=== PATIENT | female | born 1970 | race Caucasian/White ===

== ENCOUNTER 2019-10-08 17:21 | Emergency (ER) | payer OTHER, SELFPAY ==
--- NOTE | 2019-10-08 17:47 | PC.NURSE ---
Left without being seen or triaged
== END 2019-10-08 17:40 | disposition left against medical advice (07) ==
PROVIDERS: Emergency Provider Nurse Practitioner Family
DX: Z53.21 Procedure and treatment not carried out due to patient leaving prior to being seen by health care provider (principal)
CPT/HCPCS: 99199

== ENCOUNTER 2022-02-03 14:11 | Emergency (ER) | payer OTHER, SELFPAY ==
[2022-02-03 14:18] VITALS: BP 112/80; PULSE 91; RESP 16; TEMP 37.3; O2SAT 97
--- NOTE | 2022-02-03 14:45 | ED.EYEPROB ---
HPI - Eye Problem General Chief complaint: Eye Problems Stated complaint: right eye redness Time Seen by Provider: 02/03/22 14:45 Source: patient Mode of arrival: ambulatory Limitations: no limitations History of Present Illness HPI Narrative: 51-year-old female presents with complaint of redness, drainage, itching, irritation to right eye for several days. Reports symptoms started to left eye last week and redness resolved to left eye. Reports it feels like she has a clear film over both eyes. No pain or vision change. Does not have an electronic specialist. All systems reviewed and negative except as noted above. Related Data Allergies Allergy/AdvReac Type Severity Reaction Status Date / Time aspirin Allergy Mild THINS MY Verified 02/03/22 14:54 BLOOD AND MAKES MY NOSE BLEED codeine Allergy Unknown N/V Verified 02/03/22 14:54 Review of Systems Review of Systems: CONSTITUTIONAL: Denies fever, chills, or sweats. EYES: Denies visual changes. Reports right eye redness, itching, irritation and discharge. ENT: Denies rhinorrhea, congestion, sore throat, or otalgia. CARDIOVASCULAR: Denies chest pain, palpitations, or edema. RESPIRATORY: Denies cough or dyspnea. GASTROINTESTINAL: Denies abdominal pain, nausea, vomiting, or diarrhea. GENITOURINARY: Denies dysuria or hematuria. SKIN: Denies rash or itching. MUSCULOSKELETAL: Denies back pain, joint pain, or myalgia. NEUROLOGIC: Denies headache, numbness, or weakness. PSYCHIATRIC: Denies anxiety or depression. All other systems reviewed are negative, except as documented in HPI. PMFSH Comments At time of signature, agree with nursing past medical, surgical, social and family history. There is no relevant family history pertinent to the presenting complaint. Exam Narrative: GENERAL: This is a well-nourished, well-developed patient, in no apparent distress. HEAD: normocephalic, atraumatic. EYES: PERRL. Sclera and conjunctive erythematous and injected to right eye. Drainage. No corneal ulcer or corneal abrasion noted under fluorescein. EARS: External ears normal NOSE: External nose normal NECK: Neck supple, non-tender without lymphadenopathy, masses or thyromegaly. CARDIOVASCULAR: Regular rate and rhythm without murmurs, gallops, or rubs. RESPIRATORY: Clear to auscultation. Breath sounds equal bilaterally. No wheezes, rales, or rhonchi. SKIN: warm, Dry, intact with no suspicious lesions or rash, good texture and turgor. NEURO: awake, alert, and oriented to person, place and time. There were no obvious focal neurologic abnormalities. EXTREMITIES: Normal range of motion to all extremities. Course Course Level of Care: Express Care Visit Vital Signs Vital signs: Vital Signs Temperature 37.3 C 02/03/22 14:18 Pulse Rate 91 02/03/22 14:18 Respiratory Rate 16 02/03/22 14:18 Blood Pressure 112/80 02/03/22 14:18 Pulse Oximetry 97 02/03/22 14:18 Oxygen Delivery Room Air 02/03/22 14:18 Temperature 37.3 C 02/03/22 14:18 Pulse Rate 91 02/03/22 14:18 Respiratory Rate 16 02/03/22 14:18 Blood Pressure 112/80 02/03/22 14:18 Pulse Oximetry 97 02/03/22 14:18 Oxygen Delivery Room Air 02/03/22 14:18 Reviewed MDM - Eye Problem MDM Narrative Medical decision making narrative: Patient is aware of diagnosis, understands and agrees to treatment plan. Anticipatory guidance given. Patient agrees to follow-up as directed and is aware of reasons to seek care at the emergency department. Portions of this record may have been created with voice recognition software Refer to [facility] for follow-up in 24 to 48 hours. Discharge Plan Discharge Clinical Impression: Acute bacterial conjunctivitis of right eye Patient Disposition: Home, Self-Care Condition: Stable Instructions: Antibiotic Form, Conjunctivitis (ED) Additional Instructions: Use antibiotic eyedrops as prescribed. Wash hands before and after applying jean-paul
== END 2022-02-03 15:05 | disposition home or self-care (01) ==
PROVIDERS: Emergency Provider Nurse Practitioner Family
DX: H10.31 Unspecified acute conjunctivitis, right eye (principal)
CPT/HCPCS: 99213; A9270; G0463

== ENCOUNTER 2022-05-05 20:18 | Emergency (ER) | payer OTHER, SELFPAY ==
[2022-05-05] VITALS (7 sets, daily range): BP systolic 109–125; BP diastolic 82–88; PULSE 109; RESP 17–20; TEMP 36.9; O2SAT 76–100
--- NOTE | ~2022-05-05 | XR_ITS ---
EXAMINATION: XR chest 2V DATE: 05/05/2022 22:50 INDICATION: Weakness. Right arm tingling. TECHNIQUE: Frontal and lateral views of the chest were obtained. COMPARISON: Chest 2 views 09/17/2013 FINDINGS: The lungs are hyperexpanded, consistent with emphysema. There is mild atelectasis in the lo wer lung zones. No pleural effusion or pneumothorax. The heart size is normal. There is mild chronic anterior wedging of a midthoracic vertebral body. IMPRESSION: 1. Mild atelectasis in the lower lung zones. 2. Emphysema. Reviewed, dictated and finalized at location A.
--- NOTE | 2022-05-05 22:45 | PC.NURSE ---
Patient taken to xray.
[2022-05-05] MEDS: SODIUM CHLORIDE 0.9% IV 1,000 ML 999 ML IV CONT (22:55)
[2022-05-05 23:02] LABS: Basophils Absolute Auto 0.1 K/mm3 (0.0-0.1); Basophils Percent Auto 0.7 % (0.2-1.2); Eosinophils Absolute Auto 0.2 K/mm3 (0-0.3); Eosinophils Percent Auto 2.2 % (0-4.4); Hematocrit 38.8 % (37.0-47.0); Immature Granulocyte Absolute 0.03 K/mm3 (0.00-0.031); Immature Granulocyte Percent A 0.3 % (0-0.5); Lymphocytes Absolute Auto 2.29 K/mm3 (0.9-3.2); Lymphocytes Percent Auto 25.6 % (18.3-44.2); Mean Corpuscular HGB Conc 33.5 g/dl (32-36); Mean Corpuscular Hemoglobin 30.4 pg (26-34); Mean Corpuscular Volume 90.7 fl (80-100); Mean Platelet Volume 9.2 fl (7.4-10.4); Monocytes Absolute Auto 0.7 K/mm3 (0.1-0.6); Monocytes Percent Auto 8.3 % (2.6-8.5); Neutrophils Absolute Auto 5.6 K/mm3 (1.3-6.7); Neutrophils Percent Auto 62.9 % (45.5-73.1); Platelet Count Result 308 k/mm3 (150-375); Red Blood Count 4.28 M/mm3 (4.2-5.4); Red Cell Distribution Width 13.2 % (11.5-14.5)
[2022-05-05 23:10] LABS: Alanine Aminotransferase 18 U/L (6-35); Albumin Level 4.1 g/dL (3.5-5.1); Alkaline Phosphatase 89 U/L (38-126); Anion Gap 5 mmol/L (8-16); Aspartate Amino Transferase 27 U/L (14-36); Bilirubin,Total 0.3 mg/dL (0.2-1.3); Blood Urea Nitrogen 23 mg/dL (7-17); Calcium 9.1 mg/dL (8.4-10.2); Carbon Dioxide 29 mmol/L (22-30); Chloride 99 mmol/L (98-107); Estimated CRCL calculation 71 ml/min; Estimated Glomerular Filt Rate > 60; Glucose 113 mg/dL (65-110); Magnesium 2.2 mg/dL (1.6-2.3); Potassium 4.3 mmol/L (3.4-5.0); Sodium 133 mmol/L (137-145)
[2022-05-06] VITALS: O2SAT 98
[2022-05-06 00:15] VITALS: O2SAT 100
[2022-05-06 00:30] VITALS: O2SAT 97
[2022-05-06 00:31] VITALS: BP 123/91; O2SAT 96
--- NOTE | 2022-05-06 01:49 | ED.GENADULT ---
HPI - General Adult General Chief complaint: Unspecified Stated complaint: muscle spasms Time Seen by Provider: 05/05/22 22:21 History of Present Illness HPI narrative: Patient is a 51-year-old female who presents ER with right leg pain. She reports she was at home when she developed sudden pain in her right thigh. There is cramping. She cannot move it due to the discomfort. Caused her to lay on the floor. Denies trauma. Denies fevers or chills or sweats. No flaccid paralysis. No slurred speech or facial droop. Symptoms have improved. Patient did have some brief tingling in the leg and reports some tingling in her right arm. Related Data Allergies Allergy/AdvReac Type Severity Reaction Status Date / Time aspirin Allergy Mild THINS MY Verified 05/05/22 22:33 BLOOD AND MAKES MY NOSE BLEED codeine Allergy Unknown N/V Verified 05/05/22 22:33 Review of Systems Review of Systems: All systems reviewed & are unremarkable except as noted in HPI and below Constitutional: Constitutional: Denies chills and Denies fever(s) Cardiovascular: Cardiovascular: Denies chest pain, Denies radiating jaw, neck or arm pain and Denies palpitations Respiratory: Respiratory: Denies chest congestion, Denies cough and Denies dyspnea Gastrointestinal: Gastrointestinal: Denies abdominal pain, Denies nausea and Denies vomiting Musculoskeletal: Musculoskeletal: Denies arthralgias, Denies joint swelling and Reports muscle cramps Neurologic: Denies syncope, Denies focal weakness and Reports tingling PMFSH Past Medical History Medical History (Updated 05/06/22 @ 01:52 by Patsor Andrade MD) Anxiety COPD (chronic obstructive pulmonary disease) Depression Surgical History Surgical History (Updated 05/06/22 @ 01:52 by Pastor Andrade MD) History of appendectomy History of hysterectomy Exam Narrative: GENERAL: Anxious and tearful-appearing, well-nourished. HEAD: Normocephalic, atraumatic. EYES: PERRL and EOMI. ENT: Mucous membranes moist. CHEST: Clear to auscultation. No respiratory distress. HEART: Regular rate and rhythm. Normal peripheral pulses. ABDOMEN: Soft, nontender, nondistended. EXTREMITIES: Normal range of motion. No edema. SKIN: Warm, dry, no rash. NEURO: No focal deficits. Alert and oriented x3. PSYCH: Normal mood and affect. Course Course Emergency Course: Patient resting comfortably. No longer anxious. No complaints. Informed of results. Discharge home. Vital Signs Vital signs: Vital Signs Temperature 98.4 F 05/05/22 21:03 Pulse Rate 109 H 05/05/22 21:03 Respiratory Rate 20 05/05/22 21:03 Blood Pressure 109/82 05/05/22 21:03 Pulse Oximetry 100 05/05/22 21:03 Oxygen Delivery Room Air 05/05/22 21:03 Temperature 98.4 F 05/05/22 21:03 Pulse Rate 109 H 05/05/22 21:03 Respiratory Rate 17 05/05/22 23:46 Blood Pressure 123/91 H 05/06/22 00:31 Pulse Oximetry 96 05/06/22 00:31 Oxygen Delivery Room Air 05/05/22 21:03 Medical Decision Making Vital Signs Vital Signs: Vital Signs Temperature 98.4 F 05/05/22 21:03 Pulse Rate 109 H 05/05/22 21:03 Respiratory Rate 20 05/05/22 21:03 Blood Pressure 109/82 05/05/22 21:03 Pulse Oximetry 100 05/05/22 21:03 Oxygen Delivery Room Air 05/05/22 21:03 Temperature 98.4 F 05/05/22 21:03 Pulse Rate 109 H 05/05/22 21:03 Respiratory Rate 17 05/05/22 23:46 Blood Pressure 123/91 H 05/06/22 00:31 Pulse Oximetry 96 05/06/22 00:31 Oxygen Delivery Room Air 05/05/22 21:03 Lab Data Result diagrams: 05/05/22 22:54 05/05/22 22:54 Labs: Lab Results 05/05/22 05/05/22 Range/Units 22:54 22:54 WBC 9.0 (4.5-10.0) K/mm3 RBC 4.28 (4.2-5.4) M/mm3 Hgb 13.0 (12.0-15.0) g/dL Hct 38.8 (37.0-47.0) % MCV 90.7 (80-100) fl MCH 30.4 (26-34) pg MCHC 33.5 (32-36) g/dl RDW 13.2 (11.5-14.5) % Plt Count 308 (150-375) k/
== END 2022-05-06 02:01 | disposition home or self-care (01) ==
PROVIDERS: Emergency Provider Emergency Medicine
DX: R25.2 Cramp and spasm (principal); F41.9 Anxiety disorder, unspecified; J44.9 Chronic obstructive pulmonary disease, unspecified; F32.9 Major depressive disorder, single episode, unspecified
CPT/HCPCS: 36415; 71046; 80053; 83735; 85025; 96360; 99283; J7030

== ENCOUNTER 2023-08-16 16:30 | Emergency (ER) | payer OTHER, SELFPAY ==
--- NOTE | ~2023-08-16 | XR_ITS ---
EXAMINATION: XR chest 2V DATE: 08/16/2023 17:23 INDICATION: Shortness of breath TECHNIQUE: PA and lateral views of the chest were obtained. COMPARISON: Chest radiograph dated 05/05/22 FINDINGS: Hyperexpansion of lungs with increased retrosternal clear space and flattening of the diaphragm consi stent with emphysema. Minimal atelectasis at the posterior lung bases. No pulmonary edema, pleural ef fusion or pneumothorax. Heart size is normal. Unchanged mild anterior wedging at T6 and minimal anter ior wedging at T7, T8 and T11. IMPRESSION: 1. Emphysema with mild atelectasis at the posterior lung bases. Reviewed, dictated and finalized at location A. [employer]
[2023-08-16 16:24] VITALS: BP 116/85; PULSE 93; RESP 11; O2SAT 100
[2023-08-16 16:36] VITALS: PULSE 93; O2SAT 100
--- NOTE | 2023-08-16 16:37 | ECG_ITS ---
Measurements Intervals [place] Rate: 89 P: 81 IN: 166 QRS: 71 QRSD: 84 T: 65 QT: 359 QTc: 437 Interpretive Statements SINUS RHYTHM MODERATE VOLTAGE CRITERIA FOR LVH, CONSIDER NORMAL VARIANT [MEETS CRITERIA IN ONE OF: R(aVL), S(V1), R(V5), R(V5/V6)+S(V1)] BORDERLINE ECG NO PREVIOUS ECG AVAILABLE FOR COMPARISON Electronically Signed On 08-17-2023 7:33:24 [employer] by Franklin Bennett M.D.
[2023-08-16 16:44] LABS: Basophils Absolute Auto 0.1 K/mm3 (0.0-0.1); Basophils Percent Auto 0.8 % (0.2-1.2); Eosinophils Absolute Auto 0.1 K/mm3 (0-0.3); Eosinophils Percent Auto 1.6 % (0-4.4); Hematocrit 38.1 % (37.0-47.0); Hemoglobin 12.5 g/dL (12.0-15.0); Immature Granulocyte Absolute 0.01 K/mm3 (0.00-0.031); Immature Granulocyte Percent A 0.2 % (0-0.5); Lymphocytes Absolute Auto 2.22 K/mm3 (0.9-3.2); Lymphocytes Percent Auto 35.4 % (18.3-44.2); Mean Corpuscular HGB Conc 32.8 g/dl (32-36); Mean Corpuscular Hemoglobin 30.3 pg (26-34); Mean Corpuscular Volume 92.3 fl (80-100); Mean Platelet Volume 9.7 fl (7.4-10.4); Monocytes Absolute Auto 0.6 K/mm3 (0.1-0.6); Monocytes Percent Auto 9.1 % (2.6-8.5); Neutrophils Absolute Auto 3.3 K/mm3 (1.3-6.7); Neutrophils Percent Auto 52.9 % (45.5-73.1); Platelet Count Result 334 k/mm3 (150-375); Red Blood Count 4.13 M/mm3 (4.2-5.4); Red Cell Distribution Width 13.4 % (11.5-14.5); White Blood Count 6.3 K/mm3 (4.5-10.0)
[2023-08-16 16:53] LABS: Alanine Aminotransferase 22 U/L (6-35); Albumin Level 4.3 g/dL (3.5-5.1); Alkaline Phosphatase 89 U/L (38-126); Anion Gap 8 mmol/L (8-16); Aspartate Amino Transferase 36 U/L (14-36); Bilirubin,Total 0.4 mg/dL (0.2-1.3); Blood Urea Nitrogen 19 mg/dL (7-17); Calcium 9.5 mg/dL (8.4-10.2); Carbon Dioxide 25 mmol/L (22-30); Chloride 107 mmol/L (98-107); Estimated CRCL calculation 55 ml/min; Estimated Glomerular Filt Rate > 60; Glucose 124 mg/dL (65-110); Potassium 4.1 mmol/L (3.4-5.0); Sodium 140 mmol/L (137-145)
[2023-08-16 18:05] VITALS: BP 117/72; PULSE 84; RESP 17; O2SAT 97
[2023-08-16 18:48] LABS: Influenza A QL RT-PCR Negative (Negative); Influenza B QL RT-PCR Negative (Negative); SARS-CoV-2 RNA PCR Negative (Negative)
--- NOTE | 2023-08-16 19:24 | ED.SOB ---
HPI - SOB/Dyspnea General Chief Complaint: Shortness of Breath/Dyspnea Stated Complaint: chronic SOB exacerbation, wound to leg Time Seen by Provider: 08/16/23 16:44 Source: patient, RN notes reviewed and old records reviewed Mode of arrival: ambulatory Limitations: no limitations History of Present Illness HPI Narrative: This is a 52 year old female who presents for evaluation of shortness of breath and possible leg infection. PAtient states she has wound to right lower leg that she has noticed is painful . She reports her cat hit her leg. She has noticed increased warmth to her wound. She has not drainage. She also has a wound to her right posterior leg. PAtient also reports she has chronic shortness of breath and feels short of breath today. PAtient denies chest pain, fever, vomiting. She reports chronic cough. PAtient has been sleeping and comfortable entire time in ER. Related Data Allergies Allergy/AdvReac Type Severity Reaction Status Date / Time aspirin Allergy Mild THINS MY Verified 05/05/22 22:33 BLOOD AND MAKES MY NOSE BLEED codeine Allergy Unknown N/V Verified 05/05/22 22:33 Review of Systems Constitutional: Constitutional: Denies weakness Cardiovascular: Cardiovascular: Denies syncope, Denies rapid heart rate, Denies irregular heart rhythm, Denies leg edema and Reports dyspnea Respiratory: Respiratory: Denies chest congestion, Reports cough, Denies hemoptysis, Denies excessive phlegm production and Denies dyspnea Gastrointestinal: Gastrointestinal: Denies abdominal pain, Denies hematochezia, Denies diarrhea and Denies vomiting Genitourinary: Genitourinary: Denies hematuria and Denies dysuria Musculoskeletal: Musculoskeletal: Denies joint swelling, Denies loss of height and Denies muscle weakness Neurologic: Denies syncope, Denies focal weakness and Denies weakness PMFSH Past Medical History Medical History Anxiety COPD (chronic obstructive pulmonary disease) Depression Surgical History Surgical History History of appendectomy History of hysterectomy Social History Social History Smoking status: Current every day smoker Substance use: current Substance use type: methamphetamine Exam Const: General: no acute distress and alert Nutritional Appearance: well nourished Orientation/consciousness: patient oriented x3 HENMT: Head: normal to inspection Eyes: Conjunctivae: conjunctivae normal Pupils: Equal, round and reactive pupils present EOM: EOMs intact bilaterally Neck: Neck: normal visual inspection, no lymphadenopathy and no meningeal signs Other: no bruising or wounds to neck Chest: Chest palpation & inspection: normal inspection of the chest Resp: Effort & Inspection: normal respiratory effort Auscultation: clear to auscultation bilaterally Cardio: Rate: regular rate Rhythm: regular rhythm Heart sounds: no murmurs GI: GI Palp: Yes Soft to palpation, No Tenderness to palpation present (GI), No Guarding due to palpation present (GI) and No Rigid due to palpation Auscultation: normal bowel sounds Skin: Other: right anterior lower leg with wound with mild surrounding erythema, no drainage; there is wound to posterior lower leg with scab, no surrounding erythema Neuro: General: patient oriented x3, moves all extremities and CN's II-XI intact bilaterally Speech: normal speech Extrem: General: no pedal edema Psych: Mental Status: mental status grossly normal Affect: normal affect Attitude: cooperative Course Reevaluation(s) Reevaluation #1: PAtient is resting comfortably without any breathing difficulties. Will prescribed antibiotic ointment for right anterior lower leg wound. Date: 08/16/23 Time: 19:34 Vital Signs Vital signs: Vital Signs Pulse Rate 93 08/16/23 16:2
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
[2023-08-16 19:58] VITALS: BP 114/76; PULSE 89; RESP 17; O2SAT 100
[2023-08-16 20:21] VITALS: BP 124/73; PULSE 67; RESP 19; O2SAT 100
== END 2023-08-16 20:22 | disposition home or self-care (01) ==
PROVIDERS: Emergency Medicine; Emergency Provider General Practice
DX: J44.9 Chronic obstructive pulmonary disease, unspecified (principal); S81.801A Unspecified open wound, right lower leg, initial encounter; Z20.822 Contact with and (suspected) exposure to COVID-19; X58.XXXA Exposure to other specified factors, initial encounter
CPT/HCPCS: 36415; 71046; 80053; 85025; 87636; 93005; 99284

== ENCOUNTER 2024-10-28 09:29 | Emergency (ER) | payer OTHER, SELFPAY ==
--- NOTE | ~2024-10-28 | XR_ITS ---
EXAMINATION: XR lumbar spine 2-3V DATE: 10/28/2024 12:34 INDICATION: Low back pain TECHNIQUE: Anteroposterior and lateral views of the lumbar spine, and cone-down lateral view of the l umbosacral junction were obtained. COMPARISON: 06/22/2006 FINDINGS: There is a new 8 mm anterolisthesis L4 on L5 with severe L4-L5 facet osteoarthritis but without evide nt pars intra-articular is defect. Vertebral body heights are normal. Moderate disc height loss at L4 -L5 and L5-S1. Bilateral sacral iliac joints and visualized portions of the hip joints appear normal. Phleboliths in the pelvis. IMPRESSION: 1. Moderate lower lumbar spondylosis with 8 mm anterolisthesis L4 on L5. Reviewed, dictated and finalized at location B. PREVENTION OFFICER
[2024-10-28 09:31] VITALS: BP 102/62; PULSE 97; RESP 16; TEMP 36.9; O2SAT 100
--- OUTSIDE RECORDS SUMMARY | 2024-10-28 10:25 | XMS_ITS | Patient Health Record ---
Author Organization [facility] Address [address] [place] [address] Care Team Providers Care Field Party Manager Name Role Phone Nimco Torresnifer Primary Care Provider [phone] Dandre Harris Unavailable [phone] Esperanza Arriaga Unavailable [phone] Allergies Allergen (clinical drug ingredient) Drug/Non Drug Allergy documented on EMR Reaction Allergy Type Onset Date Status No Known Drug Allergy Unknown Drug Allergy Active Results Component Value Reference Range Notes Test, Urine Reviewed date:10/27/2024 02:22:40 PM Interpretation: Performing Lab: Notes/Report: Test, Urine neg Negative - Negative Breathalyzer Reviewed date:10/27/2024 11:53:50 AM Interpretation: Performing Lab: Notes/Report: RICHARD 0.000 12 Panel Urine Drug Screen Reviewed date:10/27/2024 02:34:48 PM Interpretation: Performing Lab: Notes/Report: THC neg DEBORAH neg MOP (OPI) neg AMP neg MET neg BAR neg BZO neg MDMA neg MTD neg OXY neg PCP neg BUP neg Reason For Referral No Information Medications Medication SIG (Take, Route, Frequency, Duration) Notes Start Date End Date Status Thiamine HCl 100 MG 1 tablet Orally Once a day Not-Taking Albuterol Sulfate HFA 108 (90 Base) MCG/ACT 1 puff as needed Inhalation every 4 hrs for 30 days As needed on unit 10/27/2024 Active Folic Acid 1 MG 1 tablet Orally Once a day Not-Taking Zithromax Z-Jonnie 250 MG 2 tabs day 1, 1 t ab days 2-5 Orally daily for 5 days on unit 10/27/2024 Active Mirtazapine 15 MG 1 tablet Orally at night for 30 days Not-Taking LORazepam 1 MG 1 tablet at bedtime as needed Orally Once a day Not-Taking Celecoxib 100 MG 1 capsule with food Orally Once a day Not-Taking Influenza Vac Subunit Quad 0.5 ML as directed Intramuscular once for 1 days Not-Taking hydrOXYzine Pamoate 25 MG 1-2 capsules Orally q4 hours Not-Taking Multivitamin - 1 tablet Orally Once a day Not-Taking Ipratropium-Albuterol 20-100 MCG/ACT 1 puff as needed Inhalation every 6 hrs for 30 days on unit 10/27/2024 Active Influenza Vac Subunit Quad 0.5 ML as directed Intramuscular Not-Taking Immunizations Vaccine Route Administration Date Status Comme nts FLU VAC NO PRSV 4VAL 6 mo+ IM Intramuscular 06/20/2023 Administered Yaneli Perkins 06/20/2023 03:50 PM >Given Lt Deltoid, tolerated well. Social History Tobacco Use: Social History Observation Description Date Details (start date - stop date) Current Smoker NA - NA Sex Assigned At : Social History Observation Description Sex Assigned At Female Dont use, Tobacco Use/Smoking Question Answer Notes Are you a current every day smoker PRAPARE Question Answer Notes Date Completed/Updated: 10/27/2024 What is your current housing situation? I do not have housing (staying with others, in a hotel, in a long term, living outside on the street, on a beach, or in a park) Are you worried about losing your housing? Yes What is the highest level of school that you have finished? Less than a high school degree What is your current work situation? Unemployed and seeking work In the past year, have you o r any family members you live with been unable to get any of the following when it was really needed? Check all that apply Food,Clothing,Utilities,Medicine or any health care (medical, dental, mental health or vision) Has lack of transportation k ept you from medical appointments, meetings, work or from getting things needed for daily living? Yes, it has kept me from medical appointments or from getting my medications,Yes, it has kept me from non-medical meetings, appointments, work, or getting things needed for daily living How often do you see or talk to people that you care about and feel close to? (For example: talking to friends on the phone, visiting friends or family, going to buddhism or club meetings) Less than once a week How stressed are you? Stress is when someone feels tense, nervous, anxious, or can\t sleep at night because their mind is troubled Very much In the past year have you sp ent more than 2 nights in a row in a senior living, long term, longterm center, or juvenile correctional facility? No Are you a refugee? I choose not to answer this q uestion What country are you from? I choose not to answe r this question Do you feel physically and e motionally safe where you currently live? No In the past year, have you b een afraid of your partner or ex-partner? No PRAPARE Score: 18 Enabling Services Provided? Yes Please specify Case Management Assessment First Visit Tobacco Control (Standard) Question Answer Notes Tobacco use: Current every day smoker Additional Findings: Tobacco user Moderate cigar ette smoker (10-19 cigs/day) Problems Problem Type SNOMED Code ICD Code Onset Dates Problem Status W/U Status Risk Notes Problem Tobacco user (397266001) Nicotine dependence, unspecified, uncomplicated (F17.200) Active confirmed Problem Anxiety disorder (342095419) Anxiety disorder, unspecified (F41.9) 06/21/20 Active confirmed Problem Cataract (581014401) Unspecified cataract (H26.9) Active confirmed Problem Emphysema (43866504) Emphysema, unspecified (J43.9) Active confirmed Problem COPD - Chronic obstructive pulmonary disease (00303673) COPD (chronic obstructive pulmonary disease) (J44.9) Active confirmed Problem Cannabis abuse (39423434) Cannabis use disorder, mild, abuse (F12.10) 06/21/20 Active confirmed Problem Tobacco use (027355186) Tobacco use disorder (F17.200) Active confirmed Problem Stimulant dependence (414785822) Methamphetamine use disorder, 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) 06/21/20 Active confirmed Problem Prolonged grief disorder (067744700) 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) 06/21/20 Active confirmed Problem Chronic alcoholism in remission (disorder) (562002591) Alcohol use disorder in remission (F10.91) 06/21/20 Active confirmed Vital Signs Heart Rate 79 /min 10/27/2024 Temperature 98.2 degrees Fahrenheit 10/27/2024 Respiratory Rate 16 /min 10/27/2024 Blood pressure diastolic 66 mm Hg 10/27/2024 Oximetry 97 % 10/27/2024 Height 62 in 10/27/2024 Blood pressure systolic 104 mm Hg 10/27/2024 Weight 125 lbs 10/27/2024 BMI 22.86 kg/m2 10/27/2024 Encounters Encounter Location Date Provider Diagnosis [facility] [address] [place] [address] 10/27/2024 Svitlana Torres Routine physical examination Z00.00 ; Upper respiratory infection J06.9 ; COPD (chronic obstructive pulmonary disease) J44.9 and Nicotine dependence, unspecified, uncomplicated F17.200 [facility] [address] [place] [address] 10/27/2024 Esperanza Arriaga Prolonged grief disorder F43.81 ; Depression F32.9 and Methamphetamine use disorder, severe F15.20 Assessments Encounter Date Diagnosis (ICD Code) Assessment Notes Treatment Notes Treatment Clinical Notes Section Notes 10/27/2024 Depression (ICD-10 - F32.9) 10/27/2024 Prolonged grief disorder (ICD-10 - F43.81) 10/27/2024 Upper respiratory infection (ICD-10 - J06.9) 10/27/2024 Routine physical examination (ICD-10 - Z00.00) 10/27/2024 COPD (chronic obstructive pulmonary disease) (ICD-10 - J44.9) 10/27/2024 Methamphetamine use disorder, severe (ICD-10 - F15.20) 10/27/2024 Nicotine dependence, unspecified, uncomplicated (ICD-10 - F17.200) 10/27/2024 Other Clinician met w ith client to assess needs for residential services. Clinician gathered information regarding historical presentation of mental health and substance use symptoms including withdrawal, HIV Risk assessment, psychiatric hospitalization history and presenting concern. Clinician conducted PHQ9 and CSSRS assessments as well as social drivers of health screening for the purposes of identifying additional service needs. Plan Of Treatment Future Test Test Name Order Date QuantiFERON-TB Gold Plus ([id number]) 2024 Next Appt Details Provider Name:Dandre gutierrez, 10/28/2024 01:20:00 PM, [address] [place] [address], [address], Provider Name:Svitlana Wilson rt, 10/29/2024 02:00:00 PM, [address], [place], [address], Provider Name:Leila kim, 10/30/2024 02:40:00 PM, [address], [place], [address], Provider Name:Svitlana francis, 11/02/2024 08:00:00 AM, [address], [place], [address], Insurance Providers Payer Name Payer Address Payer Phone Subscriber Number Group Number Insured Name Patient Relationship to Insured Coverage Start Date Coverage End Date [facility] Attn Claims Department [address] [id number] Marisol Chawla Self - patient is the insured 3 [facility] Att[facility] Claims Department [address] [id number] Marisol Chawla Self - patient is the insured 3 [facility] [employer] Attn Claims Department [address] [id number] Marisol Chawla Self - patient is the insured 5 Medical (General) History Medical History History ICD Code Unspecified cataract H26.9 Emphysema, unspecified J43.9 Fractured Toe - currently in brace Surgical History Surgery Date(Month/Year) Appendectomy 2012 TOTAL HYSTERECTOMY 2010 Hospitalization History Reason Date(Month/Year) Hysterectomy Appendectomy
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
--- OUTSIDE RECORDS SUMMARY | 2024-10-28 10:25 | XMS_ITS ---
Author Organization [facility] Address [address] [place] [address] Care Team Providers Care Oracle Database Consultant Name Role Phone Svitlana Torres Primary Care Provider [phone] Allergies Allergen (clinical drug ingredient) Drug/Non Drug Allergy documented on EMR Reaction Allergy Type Onset Date Status No Known Drug Allergy Unknown Drug Allergy Active Results Component Value Reference Range Notes 12 Panel Urine Drug Screen Reviewed date:10/27/2024 02:34:48 PM Interpretation: Performing Lab: Notes/Report: THC neg DEBORAH neg MOP (OPI) neg AMP neg MET neg BAR neg BZO neg MDMA neg MTD neg OXY neg PCP neg BUP neg Breathalyzer Reviewed date:10/27/2024 11:53:50 AM Interpretation: Performing Lab: Notes/Report: RICHARD 0.000 Test, Urine Reviewed date:10/27/2024 02:22:40 PM Interpretation: Performing Lab: Notes/Report: Test, Urine neg Negative - Negative REASON FOR VISIT CRU- Physical Medications Medication SIG (Take, Route, Frequency, Duration) Notes Start Date End Date Status Ipratropium-Albuterol 20-100 MCG/ACT 1 puff as needed Inhalation every 6 hrs for 30 days on unit 10/27/2024 Active Zithromax Z-Jonnie 250 MG 2 tabs day 1, 1 t ab days 2-5 Orally daily for 5 days on unit 10/27/2024 Active Influenza Vac Subunit Quad 0.5 ML as directed Intramuscular once for 1 days Not-Taking hydrOXYzine Pamoate 25 MG 1-2 capsules Orally q4 hours Not-Taking LORazepam 1 MG 1 tablet at bedtime as needed Orally Once a day Not-Taking Albuterol Sulfate HFA 108 (90 Base) MCG/ACT 1 puff as needed Inhalation every 4 hrs for 30 days As needed on unit 10/27/2024 Active Multivitamin - 1 tablet Orally Once a day Not-Taking Influenza Vac Subunit Quad 0.5 ML as directed Intramuscular Not-Taking Thiamine HCl 100 MG 1 tablet Orally Once a day Not-Taking Folic Acid 1 MG 1 tablet Orally Once a day Not-Taking Mirtazapine 15 MG 1 tablet Orally at night for 30 days Not-Taking Celecoxib 100 MG 1 capsule with food Orally Once a day Not-Taking Social History Tobacco Use: Social History Observation Description Date Details (start date - stop date) Current Smoker NA - NA Sex Assigned At : Social History Observation Description Sex Assigned At Female Tobacco Control (Standard) Question Answer Notes Tobacco use: Current every day smoker Additional Findings: Tobacco user Moderate cigar ette smoker (10-19 cigs/day) Problems Problem Type SNOMED Code ICD Code Onset Dates Problem Status W/U Status Risk Notes Problem COPD - Chronic obstructive pulmonary disease (76769221) COPD (chronic obstructive pulmonary disease) (J44.9) Active confirmed Problem Tobacco user (730698906) Nicotine dependence, unspecified, uncomplicated (F17.200) Active confirmed Vital Signs Weight 125 lbs 10/27/2024 BMI 22.86 kg/m2 10/27/2024 Height 62 in 10/27/2024 Blood pressure systolic 104 mm Hg 10/27/19 Blood pressure diastolic 66 mm Hg 025 Respiratory Rate 16 /min 10/27/2024 Temperature 98.2 degrees Fahrenheit 10/27/19 Heart Rate 79 /min 10/27/2024 Oximetry 97 % 10/27/2024 Encounters Encounter Location Date Provider Diagnosis [place] [address] [facility] [place] [address] 10/27/2024 Svitlana Torres Routine physical examination Z00.00 ; Upper respiratory infection J06.9 ; COPD (chronic obstructive pulmonary disease) J44.9 and Nicotine dependence, unspecified, uncomplicated F17.200 Assessments Encounter Date Diagnosis (ICD Code) Assessment Notes Treatment Notes Treatment Clinical Notes Section Notes 10/27/2024 Routine physical examination (ICD-10 - Z00.00) 10/27/2024 Upper respiratory infection (ICD-10 - J06.9) 10/27/2024 COPD (chronic obstructive pulmonary disease) (ICD-10 - J44.9) 10/27/2024 Nicotine dependence, unspecified, uncomplicated (ICD-10 - F17.200) Plan Of Treatment Medication Medication Name Sig Start Date Stop Date Notes Ipratropium-Albuterol 20-100 MCG/ACT 1 puff as needed Inhalation every 6 hrs for 30 days 10/27/2024 on unit Zithromax Z-Jonnie 250 MG 2 tabs day 1, 1 t ab days 2-5 Orally daily for 5 days 10/27/2024 on unit Albuterol Sulfate HFA 108 (90 Base) MCG/ACT 1 puff as needed Inhalation every 4 hrs for 30 days 10/27/2024 on unit Future Test Test Name Order Date QuantiFERON-TB Gold Plus ([id number]) 2024 Next Appt Details Follow Up: prn, Reason: Provider Name:Dandre gutierrez, 10/28/2024 01:20:00 PM, [address], [address], Provider Name:Svitlana Wilson rt, 10/29/2024 02:00:00 PM, [address], [place], [address], Provider Name:Leila kim, 10/30/2024 02:40:00 PM, [address], [place], [address], Provider Name:Svitlana francis, 11/02/2024 08:00:00 AM, [address], [place], [address], Progress Notes * Armando CHAWLAaDOB: [birth year] (54 yo F)Acc No.[id number]:10/27/2024 Patient: Giacomo BOYD Marisol Provider: Melody Torres APRN :1970 A ge:54 Y S ex:Female Date:10/27/2024 Address:[place] [address] Subjective: * Chief Complaints: * C RU- MH Physical * HPI: C SSRS Interpretation and Follow Up Plan: [...] C? N o (Testing should be offered). :. D epression Screening: PHQ-9 L ittle interest [...] 2 2, I nterpretation S evere Depression. I ntervention D epression Screening Findings P ositive, F ollow-Up for Depression Patient is admitted to a [facility] unit where their mental health is monitored.? S creening: [place] Suicide Severity Rating Scale (LF) D o [...] N o, I nterpretation: L ow Risk. P reventative Health and Wellness follow-up: . S mili: Arrived on: 10/27/24 Meth last use 8 days prior, smoked Denies IVDU Hx Previous treatment: 5 day DETOX in 2023 at [facility] Psych provider: Denies PCP: Denies Any medical acute concerns: COPD/ emphysema- does not have inhaler. Reports she went to [place] in 2022 and was Dx with Emphysema/COPD- prescribed inhaler, but never picked up. Chronic cough with green sputum ( onset 7-10 days), nasal congestion Denies SI/HI. * ROS: G eneral/Constitutional: Denies C hange in appetite. D enies C hills. D enies F atigue. D enies F ever. D enies H eadache. D enies W eight loss.? R espiratory: Dyspnea Admits. D enies C hest pain. A dmits?Cough. D enies P ain with inspiration. A dmits S hortness of breath at rest.?Admits S hortness of breath with exertion. A dmits S putum production. D enies?Wheezing. C ardiovascular: Denies E abhinav. D enies C hest pain. D enies?Claudication. G astrointestinal: Denies A bdominal pain. D enies N ausea. G enitourinary: urinary problems D enies. M usculoskeletal: Patient denies m usculoskeletal concerns. S kin: Denyimi Chu ti. * Medical History: * Surgical History: A ppendectomy 2012TOTAL HYSTERECTOMY 2009 * Hospitalization/Major Diagno stic Procedure: A ppendectomy Hysterectomy * Family History: F ather: , Cancer of the stomach . M other: , Dementia . 1 sister(s) . 2 son(s) , 1 daughter(s) - healthy. . Sister- has hole in heart. * Social History: P rimary Social History: A lcohol Use A lcohol Use Frequency: Previous alcohol abuse. I llicit Substance Usage I llicit Substance Usage: Y es, S ubstance Used: M ethamphetamine. E mployment Status E mployment Status: Unemployed .. T obacco Use - do not use T obacco Use:?Status Reviewed with Patient Everyday smoker 1.5 PPD, T obacco Use Status Reviewed on: . T obacco Use: T obacco Control (Standard) T obacco use: C urrent every day smoker, A dditional Findings: Tobacco user M oderate cigarette smoker (10-19 cigs/day). * Medications: N ot-TakingMirtazapine 15 MG Tablet 1 tablet Orally at night Celecoxib 100 MG Capsule 1 capsule with food Orally Once a day Thiamine HCl 100 MG Tablet 1 tablet Orally Once a day Folic Acid 1 MG Tablet 1 tablet Orally Once a day Multivitamin - Tablet 1 tablet Orally Once a day Influenza Vac Subunit Quad 0.5 ML Suspension Prefilled Syringe as directed Intramuscular Influenza Vac Subunit Quad 0.5 ML Suspension Prefilled Syringe as directed Intramuscular once hydrOXYzine Pamoate 25 MG Capsule 1-2 capsules Orally q4 hours LORazepam 1 MG Tablet 1 tablet at bedtime as needed Orally Once a day Not-Taking Mirtazapine 15 MG Tablet 1 tablet Orally at night Not-Taking Celecoxib 100 MG Capsule 1 capsule with food Orally Once a day Not-Taking Thiamine HCl 100 MG Tablet 1 tablet Orally Once a day Not-Taking Folic Acid 1 MG Tablet 1 tablet Orally Once a day Not-Taking Multivitamin - Tablet 1 tablet Orally Once a day Not- Taking Influenza Vac Subunit Quad 0.5 ML Suspension Prefilled Syringe as directed Intramuscular Not-Taking Influenza Vac Subunit Quad 0.5 ML Suspension Prefilled Syringe as directed Intramuscular once Not-Taking hydrOXYzine Pamoate 25 MG Capsule 1-2 capsules Orally q4 hours Not-Taking LORazepam 1 MG Tablet 1 tablet at bedtime as needed Orally Once a day * Allergies: N o Known Drug Allergyno[Allergies Verified] Objective: * Vitals: I nitials: HP, Wt:125, Ht:62, BMI:22.86, BP:104/66, HR:79, Oxygen sat %:97, Temp:98.2, RR:16, LMP: HYSTO, Pain scale:9. * Examination: G eneral Examination: GENERAL APPEARANCE: a lert, oriented, well developed, well nourished, in no acute distress. EYES: P ERRLA, sclera and conjunctiva clear. EARS a uditory canal clear, tympanic membrane intact, clear, light reflex present. NOSE: n jaclyn patent, no lesions, septum intact. ORAL CAVITY: m ucosa moist. THROAT: n o erythema, no exudate, pharynx normal. NECK/THYROID: n o cervical lymphadenopathy, no thyromegaly.? SKIN: w arm and dry, no rashes. HEART: r egular rate and rhythm, no murmurs. LUNGS: d iminished breath sounds throughout. ABDOMEN: b owel sounds present, soft, nontender, nondistended, no masses palpable, no organomegaly . Assessment: * Assessment: 1. U pper respiratory infection - J06.9 2 . R outine physical examination - Z00.00 (Primary) 3 . C OPD (chronic obstructive pulmonary disease) - J44.9 4 . N icotine dependence, unspecified, uncomplicated - F17.200 Plan: * Treatment: Value Reference Range P regnancy Test, Urine neg Negative - Negative ?LAB: Breathalyzer (Collection Date & Time - 10/27/2024) ?LAB: 12 Panel Urine Drug Screen (Collection Date & Time - 10/27/2024)* Value Reference Range T HC neg * C OC neg * M OP (OPI) neg * A MP neg * M ET neg * B AR neg * B ZO neg * M DMA neg * M TD neg * O XY neg * P CP neg * B UP neg ?LAB: QuantiFERON-TB Gold Plus ([id number]) (Ordered for 10/27/2024) (Collection Date & Time - 10/27/2024 02:33 PM)2.?Upper respiratory infection? Start Zithromax Z-Jonnie Tablet, 250 MG, 2 tabs day 1, 1 tab days 2-5, Orally, daily, 5 days, 6, Refills 0, Notes to Pharmacist: on unit;?Start Albuterol Sulfate HFA Aerosol Solution, 108 (90 Base)MCG/ACT, 1 puff as needed, Inhalation, every 4 hrs As needed, 30 days, 1, Refills 1, Notes to Pharmacist: on unit.??3.?COPD (chronic obstructive pulmonary disease)? Start Ipratropium-Albuterol Aerosol Solution, 20-100 MCG/ACT, 1 puff as needed, Inhalation, every 6hrs, 30 days, 1, Refills 1, Notes to Pharmacist: on unit.?? * Recommended Wellness and Pre vention Guidelines: * S tatus A anitat L ast Done N ext Due A ction Taken N ONCOMPLIANT B reast cancer screening - 0 10/27/2024 - N ONCOMPLIANT C ervical cancer screening - 0 10/27/2024 - N ONCOMPLIANT C olorectal cancer screening - 0 10/27/2024 - N ONCOMPLIANT H IV screening - 0 10/27/2024 - * Procedure Codes: 9 9000 SPECIMEN [id number] BEHAV CHNG SMOKING 3-10 [id number] URINE TEST, Modifiers: QW * Preventive Medicine: Counseling: S MOKING: P atient counselled on the dangers of tobacco use and urged to quit. . . * Follow Up: p rn * * LE SIDE LASTER Sign off status: Completed true * Provider: Melody Torres APRN Date: 0 10/27/2024 Generated for Emily fernandez/Mary/Hernando on: 0 10/28/2024 10:25 AM STAPLE SIDE LASTER History and Physical Notes * HPI (History of Present Illness) Category Sub-Category Detail Notes Category Not es Depression Screening PHQ-9 Little inte rest or pleasure in doing things: Nearly every day Feeling down, depressed, or hopeless: Ne franki every day Trouble falling or staying asleep, or sl eeping too much: Nearly every day Feeling tired or having little energy: N early every day Poor appetite or overeating: More than h saloómn the days Feeling bad about yourself o [...] all Total Score: 22 Interpretation: Severe Depression Intervention Depression Screening Findings: P ositive Follow-Up for Depression: Choco yepez is admitted to a [facility] unit where their mental health is monitored Summary Arrived on: 10/27/24 Meth last use 8 days prior, smoked Denies IVDU Hx Previous treatment: 5 day DETOX in 2023 at [facility] Psych provider: Denies PCP: Denies Any medical acute concerns: COPD/ emphysema- does not have inhaler. Reports she went to [place] in 2022 and was Dx with Emphysema/COPD- prescribed inhaler, but never picked up. Chronic cough with green sputum ( onset 7-10 days), nasal congestion Denies SI/HI Screening [place] Suicide Severity Rating Scale (LF) Do you want to [...] Risk HIV Risk Assessment Screening Sexual Risk Behavi ors: 1. Are you sexually active? (If no skip question 2): No : HIV/AIDS/Hepatitis Risk Assessment 1. Gomez ve you [...] Hepatitis C?: No (Testing should be offered) Preventative Health and Wellness follow-up . CSSRS Interpretation and Follow Up Plan CSSRS Interpretation and Follow Up Plan CSSRS Screen documented using SF: Yes : Risk Disposition from SF: Low - No Follo w Up Plan Required Follow Up Plan: No Follow Up Plan requir ed at this time. Examination Category Sub-Category Detail Notes Category Not es General Examination GENERAL APPEARANCE: alert, o riented, well developed, well nourished, in no acute distress EYES: PERRLA, sclera and c onjunctiva clear EARS auditory canal clear , tympanic membrane intact, clear, light reflex present NOSE: nares patent, no les ions, septum intact THROAT: no erythema, no exud ate, pharynx normal NECK/THYROID: no cervical lymphade nopathy, no thyromegaly HEART: regular rate and rhy thm, no murmurs LUNGS: diminished breath so unds throughout ABDOMEN: bowel sounds present , soft, nontender, nondistended, no masses palpable, no organomegaly SKIN: warm and dry, no yessy hes ORAL CAVITY: mucosa moist
--- OUTSIDE RECORDS SUMMARY | 2024-10-28 10:25 | XMS_ITS ---
Author Organization [facility] Address [address] [place] [address] Care Team Providers Care Respiratory Care Technician Name Role Phone Svitlana Torres Primary Care Provider Dandre Harris Unavailable [phone] Allergies Allergen (clinical drug ingredient) Drug/Non Drug Allergy documented on EMR Reaction Allergy Type Onset Date Status No Known Drug Allergy Unknown Drug Allergy Active REASON FOR VISIT on CRU- Grief and depression Medications Medication SIG (Take, Route, Frequency, Duration) Notes Start Date End Date Status Folic Acid 1 MG 1 tablet Orally [...] days As needed on unit 10/27/2024 Active Mirtazapine 15 MG 1 tablet Orally at night for 30 days Not-Taking Celecoxib 100 MG 1 capsule with food Orally Once a day Not-Taking Ipratropium-Albuterol 20-100 MCG/ACT 1 puff as needed Inhalation every 6 hrs for 30 days on unit 10/27/2024 Active Zithromax Z-Jonnie 250 MG 2 tabs day 1, 1 t ab days 2-5 Orally daily for 5 days on unit 10/27/2024 Active LORazepam 1 MG 1 tablet at bedtime as needed Orally Once a day Not-Taking Social History Sex Assigned At : Social History Observation Description Sex Assigned At Female Encounters Encounter Location Date Provider Diagnosis Counts Include [facility] [address] [place] [address] 10/28/2024 Dandre Harris Plan Of Treatment Next Appt Details Provider Name:Dejalizzie Goodwin Honey brenda, 10/28/2024 01:20:00 PM, [address] , [place], [address], Provider Name:Svitlana francis, 10/29/2024 02:00:00 PM, [address], [place], [address], Provider Name:Leila kim, 10/30/2024 02:40:00 PM, [address], [place], [address], Provider Name:Svitlana francis, 11/02/2024 08:00:00 AM, [address], [place], [address], Progress Notes * Armando CHAWLAaDOB: [birth year] (54 yo F)Acc No.[id number]:10/28/2024 UNLOCKED PROGRESS NOTE Patient: Marisol RIVERA Provider: Dave Harris PMHNP :1970 A ge:54 Y S ex:Female Date:10/28/2024 Address:[place] [address] Pcp:Svitlana Torres Subjective: * Chief Complaints: * 1 . on CRU- Grief and depression. * Medical History: U nspecified cataract, Emphysema, unspecified, Fractured Toe - currently in brace. * Surgical History: A ppendectomy 2011, TOTAL HYSTERECTOMY 2009. * Hospitalization/Major Diagno stic Procedure: A ppendectomy , Hysterectomy . * Family History: F ather: , Cancer of the stomach . M other: , Dementia . 1 sister(s) . 2 son(s) , 1 daughter(s) - healthy. . Sister- has hole in heart. * Social History: P rimary Social History: A lcohol Use A lcohol Use Frequency: P revious alcohol abuse Illicit Substance Usage I llicit Substance Usage: Y es S ubstance Used: M ethamphetamine Employment Status E mployment Status: Unemployed .. Tobacco Use - do not use T obacco Use: Janet márquez Reviewed with Patient Everyday smoker 1.5 PPD T obacco Use Status Reviewed on: 1 * Medications: T aking Zithromax Z-Jonnie 250 MG Tablet 2 tabs day 1, 1 tab days 2-5 Orally daily , Notes to Pharmacist: on unit, Taking Albuterol Sulfate HFA 108 (90 Base) MCG/ACT Aerosol Solution 1 puff as needed Inhalation every 4 hrs As needed, Notes to Pharmacist: on unit, Taking Ipratropium-Albuterol 20-100 MCG/ACT Aerosol Solution 1 puff as needed Inhalation every 6 hrs , Notes to Pharmacist: on unit, Not-Taking Mirtazapine 15 MG Tablet 1 tablet Orally at night , Not-Taking Celecoxib 100 MG Capsule 1 capsule with food Orally Once a day , Not-Taking Thiamine HCl 100 MG Tablet 1 tablet Orally Once a day , Not-Taking Folic Acid 1 MG Tablet 1 tablet Orally Once a day , Not-Taking Multivitamin - Tablet 1 tablet Orally Once a day , Not-Taking Influenza Vac Subunit Quad 0.5 ML Suspension Prefilled Syringe as directed Intramuscular , Not-Taking Influenza Vac Subunit Quad 0.5 ML Suspension Prefilled Syringe as directed Intramuscular once , Not-Taking hydrOXYzine Pamoate 25 MG Capsule 1-2 capsules Orally q4 hours , Not-Taking LORazepam 1 MG Tablet 1 tablet at bedtime as needed Orally Once a day * Allergies: N o Known Drug Allergy. Objective: * Vitals: * Examination: C QM Exceptions: Cervical Cancer Screening not performed R adriano H istory of Hysterectomy - No Residual Cervix Assessment: Plan: * Treatment: * Recommended Wellness and Pre vention Guidelines: * S willi A lert L ast Done N ext Due A ction Taken N ONCOMPLIANT B reast cancer screening - 0 10/28/2024 - N ONCOMPLIANT C ervical cancer screening - 0 10/28/2024 - N ONCOMPLIANT C holesterol screen (genl pop) - 0 10/28/2024 - N ONCOMPLIANT C olorectal cancer screening - 0 10/28/2024 - N ONCOMPLIANT H IV screening - 0 10/28/2024 - * * Electronic signature of Deja Harris on 10/28/2024 at 10:24 AM SAMPLE DRILLER Sign off status: Pending * Provider: Dave Harris, [facility] Date: 0 10/28/2024 Generated for Emily fernandez/Mary/Michaelitting on: 0 10/28/2024 10:24 AM SAMPLE DRILLER History and Physical Notes * Examination Category Sub-Category Detail Notes Category Not es CQM Exceptions Cervical Cancer Scre ening not performed Reason: History of Hysterectomy - No Residual Cervix
--- NOTE | 2024-10-28 11:39 | ED.BACK ---
HPI - Back Pain/Injury General Chief Complaint: Back Pain/Injury <Lupis Niño PA-C - Last Filed: 10/28/24 14:45> Stated Complaint: back pain <Lupis Niño PA-C - Last Filed: 10/28/24 14:45> Time Seen by Provider: 10/28/24 11:39 <Lupis Niño PA-C - Last Filed: 10/28/24 14:45> Focused HPI: This is a 54 year old female that presents to the ER for low back pain. No radiation of pain. No known alleviating or exacerbating factors. She took tylenol and motrin this morning. No known injuries. Denies saddle anesthesia, bowel/bladder incontinence. GENERAL: Well-appearing, well-nourished, and in no acute distress. HEAD: Normocephalic, atraumatic. CHEST: Clear to auscultation. ?No respiratory distress. HEART: Regular rate and rhythm.? NEURO: ?Alert and oriented x3. Patient screened in triage and initial orders placed.? ?Additional care and disposition to be based upon?diagnostic testing and treatment. <Lupis Niño PA-C - Last Filed: 10/28/24 14:45> History of Present Illness HPI Narrative: Patient 54-year-old female who presents emergency department with chief complaint of low back pain. Patient denies radiation denies bowel or bladder incontinence denies saddle anesthesia denies footdrop. <Edmundo Gutierrez MD - Last Filed: 10/28/24 13:11> Related Data Allergies/Adverse Reactions: Allergies Allergy/AdvReac Type Severity Reaction Status Date / Time aspirin Allergy Mild THINS MY Verified 05/05/22 22:33 BLOOD AND MAKES MY NOSE BLEED codeine Allergy Unknown N/V Verified 05/05/22 22:33 <Lupis Niño PA-C - Last Filed: 10/28/24 14:45> Review of Systems Review of Systems: A 10 system review of systems was completed on the patient and is negative except for what is stated in the HPI. Nursing and ancillary documentation was reviewed. <Edmundo Gutierrez MD - Last Filed: 10/28/24 13:11> PMFSH Past Medical History Medical History: Medical History Depression Anxiety COPD (chronic obstructive pulmonary disease) <Lupis Niño PA-C - Last Filed: 10/28/24 14:45> Surgical History Surgical History: Surgical History History of hysterectomy History of appendectomy <Lupis Niño PA-C - Last Filed: 10/28/24 14:45> Social History Social History: Social History Smoking status: Current every day smoker Substance use: current Substance use type: methamphetamine <Lupis Niño PA-C - Last Filed: 10/28/24 14:45> Exam Narrative: GENERAL: Well-appearing, well-nourished, and in no acute distress. HEAD: Normocephalic, atraumatic. EYES: PERRLA and EOMI. ENT: Nares clear, no rhinorrhea or epistaxis. Mucous membranes moist. NECK: Supple. CHEST: Clear to auscultation. No respiratory distress. HEART: Regular rate and rhythm. No murmur heard. Normal peripheral pulses. ABDOMEN: Soft, nontender, nondistended, normal active bowel sounds. EXTREMITIES: Normal range of motion. No edema. SKIN: Warm, dry, no rash. NEURO: No focal deficits. Alert and oriented x3. No saddle anesthesia no footdrop PSYCH: Normal mood and affect. <Edmundo Gutierrez MD - Last Filed: 10/28/24 13:11> Course Vital Signs Vital signs: Vital Signs Temperature 98.4 F 10/28/24 09:31 Pulse Rate 97 10/28/24 09:31 Respiratory Rate 16 10/28/24 09:31 Blood Pressure 102/62 10/28/24 09:31 Pulse Oximetry 100 10/28/24 09:31 Oxygen Delivery Room Air 10/28/24 09:31 Temperature 98.4 F 10/28/24 09:31 Pulse Rate 80 10/28/24 14:10 Respiratory Rate 16 10/28/24 14:10 Blood Pressure 120/70 10/28/24 14:10 Pulse Oximetry 100 10/28/24 14:10 Oxygen Delivery Room Air 10/28/24 09:31 <Lupis Niño PA-C - Last Filed: 10/28/24 14:45> Vital Signs Temperature 98.4 F 10/28/24 09:31 Pulse Rate 97 10/28/24 09:31 Respiratory Rate 16 10/28/24 09:31 Blood Pressure 102/62 10/28/24 09:31 Pulse Oximetry 100 10/28/24 09:31 Oxygen Delivery Room Air 10/28/24 09:31 Temperature 98.4 F 10/28/24 09:31 Pulse Rate 80 10/28/24 14:10 Respiratory Rate 16 10/28/24 14:10 Blood Pressure 120/70 10/28/24 14:10 Pulse Oximetry 100 10/28/24 14:10 Oxygen Delivery Room Air 10/28/24 09:31 <Edmundo Gutierrez MD - Last Filed: 10/28/24 13:11> MDM - Back Pain/Injury MDM Narrative Medical decision making narrative: Dose includes low back pain, arthritis, occult fracture Plain film x-rays lumbar spine showed Moderate lower lumbar spondylosis with 8 mm anterolisthesis L4 on L5 <Edmundo Gutierrez MD - Last Filed: 10/28/24 13:11> Critical Care Time Critical Care Time Critical Care Time: No <Lupis Niño PA-C - Last Filed: 10/28/24 14:45> Discharge Plan Discharge Clinical Impression: Lumbar radiculopathy <Lupis Niño PA-C - Last Filed: 10/28/24 14:45> Patient Disposition: Home, Self-Care <Lupis Niño PA-C - Last Filed: 10/28/24 14:45> Condition: Stable <Lupis iNño PA-C - Last Filed: 10/28/24 14:45> Instructions: Antibiotic Form, Back Pain (ED) <Lupis Niño PA-C - Last Filed: 10/28/24 14:45> Patient Language: Mauritanian <Lupis Niño PA-C - Last Filed: 10/28/24 14:45> Prescriptions: New diclofenac potassium 50 mg tablet 50 mg PO TID PRN (Reason: pain) Qty: 30 0RF prednisone 20 mg tablet 40 mg PO DAILY 5 Days Qty: 10 0RF cyclobenzaprine 10 mg tablet 10 mg PO TID PRN (Reason: muscle spasm) Qty: 21 0RF lidocaine [Lidoderm] 5 % adhesive patch,medicated 1 patch topical DAILY PRN (Reason: pain) Qty: 15 0RF Rx Instructions: leave on most painful area for up to 12 hrs No Action ofloxacin 0.3 % drops See Rx Instructions .ROUTE .COMPLEX Qty: 10 0RF Rx Instructions: put 1-2 drps into affected eye(s) every 2-4 h x 2 days, then 1-2 drps 4 times/day days 3-7 cyclobenzaprine 10 mg tablet 10 mg PO TID PRN (Reason: muscle spasm) Qty: 20 0RF naproxen 375 mg tablet 375 mg PO BID Qty: 14 0RF mupirocin 2 % ointment 1 applic topical BID Qty: 15 0RF albuterol sulfate 90 mcg/actuation HFA aerosol inhaler 2 puff inhalation QID PRN (Reason: shortness of breath or wheezing) Qty: 6.7 0RF <Lupis Niño PA-C - Last Filed: 10/28/24 14:45> Follow-up/Referrals: Marcel Montana MD [Physician] - UNKNOWN,DOCTOR [Primary Care Provider] - <Lupis Niño PA-C - Last Filed: 10/28/24 14:45> Time of Disposition: 13:09 <Lupis Niño PA-C - Last Filed: 10/28/24 14:45> 13:09 <Edmundo Gutierrez MD - Last Filed: 10/28/24 13:11>
[2024-10-28] MEDS: LIDOCAINE 5% PATCH 1 PATCH TRANSDERM (12:12)
--- NOTE | 2024-10-28 13:11 | PC.NURSE ---
Patient in room sleeping in no obvious distress.
--- OUTSIDE RECORDS SUMMARY | 2024-10-28 13:49 | XMS_ITS | Clinical Summary ---
Author Organization [facility] Address [address] [place] [id number] Care Team Providers Care Interstate Bus Driver Name Role Phone Buzz Vences MD Primary Care Provider [phone] Allergies Active Allergy Reactions Criticality Noted Date Comments Aspirin Unknown 03/04/2017 Codeine Unknown 03/04/2017 Medications hydrocodone-aceta minophen 5-325 MG tablet Take 1 tablet by mouth every 6 (six) hours as needed. 7 Active meloxicam 7.5 MG tablet Take 1 tablet by mouth. 7 Active nabumetone 500 MG tablet Take by mouth 2 (two) times daily. 7 Active tizanidine 4 MG tablet 7 Active busPIRone 10 MG tabletIndications :Anxiety Take 1 tablet (10 mg total) by mouth 3 (three) times daily. 90 tablet 1 9 Active predniSONE 20 MG tabletIndications :Bronchitis with bronchospasm Take two tablets once a day for five days 10 tablet 9 Active cyclobenzaprine 10 MG tabletIndications :Arthritis,Muscle spasms of both lower extremities Take 1 tablet (10 mg total) by mouth 3 (three) times daily. 30 tablet 1 9 Active Active Problems Problem Noted Date Diagnosed Date Arthritis 03/04/2017 Family History Medical History Relation Comments Alzheimers Mother Hypertension Mother Seizures Other Relation Status Comments Mother Other Alive Social History Tobacco Use Types Packs/Day Years Used Date Smoking Tobacco: Every Day Cigarettes Smokeless Tobacco: Never Tobacco Cessation:Ready to Q uit: No; Counseling Given: No Alcohol Use Standard Drinks/Week Comments No 0 (1 standard drink = 0.6 oz pur e alcohol) AUDIT-C Answer Date Recorded Frequency of Alcohol Consumption Never 02/19/2019 Average Number of Drinks Not on file 019 Frequency of Binge Drinking Not on file 02/01 Comments No Sex and Gender Information Value Date Recorded Sex Assigned at Not on file Legal Sex Female 7:42 PM CDT Gender Identity Not on file Sexual Orientation Not on file Last Filed Vital Signs Vital Sign Reading Time Taken Comments Blood Pressure 126/90 02/21/2019 10:11 AM CDT Pulse 95 02/21/2019 10:11 AM CDT Temperature 36.7 C (98.1 F) 02/21/2019 10:11 AM CDT Respiratory Rate 18 02/21/2019 10:11 AM CDT Oxygen Saturation 97% 02/21/2019 10:11 AM CDT Inhaled Oxygen Concentration - - Weight 57.4 kg (126 lb 9.6 oz) 02/21/2019 10:11 AM CDT Height 167.6 cm (5' 6 ) 02/21/2019 10:11 AM CDT Body Mass Index 20.43 02/21/2019 10:11 AM CDT Plan of Treatment Health Maintenance Due Date Last Done Comments Colorectal Cancer Screening Colonoscopy (10 Years) 1971 Annual Physical 1974 Pneumococcal Vaccine: Pediat rics (0 to 5 Years) and At-Risk Patients (6 to 64 Years) (1 of 2 - PCV) 1977 DTaP, Tdap and Td Vaccines ( 1 - Tdap) 1990 Hepatitis B Vaccines (1 of 3 - 19+ 3-dose series) 1990 Mammogram Screening 2011 Zoster Vaccines (1 of 2) 2021 COVID-19 Vaccine ( - 2023-2 5 season) 2024 Influenza Adult (#1) 2024 Hepatitis C Completed 02/04/2023 Meningococcal B Vaccine Aged Out No l onger eligible based on patient's age to complete this topic Meningococcal Vaccine Aged Out No brittny shaheen eligible based on patient's age to complete this topic RSV Immunizations Under 20 Months Aged Out No longer eligible based on patient's age to complete this topic Insurance [employer] Care Teams Interstate Bus Driver Relationship Specialty [place] [id number] [place] [address] PCP - General FAMILY PRACTICE 02/20/19
--- OUTSIDE RECORDS SUMMARY | 2024-10-28 13:49 | XMS_ITS | Clinical Summary ---
Author Organization [facility] Address [address] [place] [address] Care Team Providers Care Tanning Wheel Operator Name Role Phone Keshawn Montelongo MD Primary Care Provider [phone] Allergies No known active allergies Social History Tobacco Use Types Packs/Day Years Used Date Smoking Tobacco: Never Assessed Personal Safety Answer Date Recorded Have you ever been in or are you currently in a harmful physical or emotional relationship or is someone making you feel afraid or unsafe? Denies 02/18/2024 Comments Unknown Sex and Gender Information Value Date Recorded Sex Assigned at Not on file Legal Sex Female 8:53 PM RELEASE SPECIALIST Gender Identity Female 02/18/2024 4:59 PM CDT Sexual Orientation Not on file Last Filed Vital Signs Vital Sign Reading Time Taken Comments Blood Pressure 116/88 02/18/2024 6:27 PM CDT Pulse 73 02/18/2024 6:27 PM CDT Temperature 37.1 C (98.8 F) 02/18/2024 4:31 PM CDT Respiratory Rate 16 02/18/2024 6:27 PM CDT Oxygen Saturation 98% 02/18/2024 6:27 PM CDT Inhaled Oxygen Concentration - - Weight 53.3 kg (117 lb 8.1 oz) 02/18/2024 4:31 P M CDT Height 165.1 cm (5' 5 ) 02/18/2024 4:31 PM CDT Body Mass Index 19.55 02/18/2024 4:31 PM CDT Plan of Treatment Health Maintenance Due Date Last Done Comments Breast Cancer Screening-Mammogram 1971 Cervical Cancer Screening 1971 Colon Cancer Screening-Colonoscopy 1971 Depression Screening 1971 Hepatitis C Screening 1971 DTaP/Tdap/Td Vaccine (1 - Tdap) 1982 Hepatitis B Screening 1989 Regular Well Visit/Exam 18-64 1989 Zoster Vaccine (1 of 2) 2021 Influenza Vaccine (#1) 2024 Pneumococcal vaccine <65 Aged Out No longer eligible based on patient's age to complete this topic Insurance IDPA Care Teams Tanning Wheel Operator Relationship Specialty Start Date End Date Keshawn Montelongo MD PCP - General Emergency Medicine 06/14/22
--- OUTSIDE RECORDS SUMMARY | 2024-10-28 13:49 | XMS_ITS | Referral Summary ---
Author Organization [facility] [place] Address [address] [place] [id number] Care Team Providers Care Professor Of Forest Planning Name Role Phone Keshawn Montelongo MD Primary Care Provider [phone] Allergies No known active allergies Social History [...] on file Legal Sex Female 8:53 PM CARE TRANSITION MANAGER Gender Identity Female 02/18/2024 4:59 PM CDT [...] 02/18/2024 4:31 PM CDT Plan of Treatment Not on file Insurance IDPA Care Teams Professor Of Forest Planning Relationship Specialty Start Date End Date Keshawn Montelongo MD PCP - General Emergency Medicine 06/14/22
[2024-10-28] MEDS: KETOROLAC 30 MG/ML VIAL (*BKC) IM (13:53)
[2024-10-28] MEDS: predniSONE 20 MG TABLET 60 MG PO (13:53)
[2024-10-28] MEDS: ORPHENADRINE CITRATE 100 MG TABLET.ER PO (13:53)
[2024-10-28 14:10] VITALS: BP 120/70; PULSE 80; RESP 16; O2SAT 100
== END 2024-10-28 14:15 | disposition home or self-care (01) ==
PROVIDERS: Emergency Provider Emergency Medicine
DX: M54.16 Radiculopathy, lumbar region (principal); F41.8 Other specified anxiety disorders; J44.9 Chronic obstructive pulmonary disease, unspecified
CPT/HCPCS: 72100; 96372; 99283; A9270; J1885; J7512